=== PATIENT | male | born 1970 | race Caucasian/White ===

== ENCOUNTER 2024-03-09 00:51 | Day surgery (SDC) | payer BC, SELFPAY ==
[2024-03-08 19:50] VITALS: BP 142/80
[2024-03-08 19:58] VITALS: BMI 25.6
[2024-03-08 20:10] VITALS: BP 119/78
[2024-03-08 20:13] LABS: % Basophils 0.4 % (0-2); % Eosinophils 1.4 % (0-6); % Immature Granulocytes 0.1 % (0-0.5); % Lymphocytes 35.7 % (20.5-51.1); % Monocytes 9.4 % (1.7-9.3); Absolute Eosinophils 0.1 10^3/uL (0-0.7); Absolute Lymphocytes 2.7 10^3/uL (1.2-3.4); Absolute Monocytes 0.7 10^3/uL (0.1-0.6); Hematocrit 39.5 % (39.0-52.0); Hemoglobin 13.8 g/dL (13.0-18.0); Mean Corp Hgb Conc. 34.9 g/dL (33.0-37.0); Mean Corpuscular Hgb 29.5 pg (27.0-31.0); Mean Corpuscular Volume 84.4 fL (80.0-94.0); Mean Platelet Volume 9.3 fL (7.4-10.4); Nucleated Red Blood Cells % 0 % (-); Platelet Count 292 10^3/uL (130-400); Red Blood Cell Count 4.68 10^6/uL (4.70-6.10); Red Cell Dist. Width 12.7 % (11.5-14.5); White Blood Cell Count 7.6 10^3/uL (4.8-10.8)
[2024-03-08 20:25] LABS: ALT (SGPT) 23 U/L (0-50); AST (SGOT) 32 U/L (17-59); Albumin 4.4 g/dl (3.5-5.0); Alkaline Phosphatase 72 U/L (38-126); Blood Urea Nitrogen 21 mg/dl (9-20); Calcium 9.3 mg/dl (8.4-10.2); Carbon Dioxide 24 mmol/L (22-30); Chloride 103 mmol/L (98-107); Estimated Creatinine Clearance 71 ml/min; Glucose 99 mg/dl (70-99); Potassium 3.8 mmol/L (3.5-5.1); Sodium 142 mmol/L (135-145); Total Bilirubin 0.4 mg/dl (0.2-1.3); Total Protein 7.4 g/dl (6.3-8.2); eGFR > 60.00
[2024-03-08 20:38] LABS: Troponin I < 0.012 ng/ml
[2024-03-08 22:00] VITALS: BP 126/78
[2024-03-08 23:00] VITALS: BP 121/79
[2024-03-08 23:24] LABS: Troponin I 0.025 ng/ml
[2024-03-09] VITALS (13 sets, daily range): BP systolic 102–125; BP diastolic 53–80; BMI 25.1
--- NOTE | 2024-03-09 00:05 | ED.GENMED ---
History of Present Illness
General
Chief Complaint: Chest Pain
Source: patient and spouse
Time Seen by Provider: 03/08/24 19:54
History of Present Illness
History of Present Illness:
53-year-old male presents after he developed substernal chest pressure. The patient states that started about an hour prior to arrival. The patient does admit that has resolved prior to arrival in the department. He states it is 'nothing I ever
felt before'. He states he was just sitting and resting comfortably. He had otherwise a normal night. He had not just eaten or had anything GI related. He did feel like he had little bit difficulty breathing with the discomfort. He does admit
he has a history of hypercholesterolemia and has not taken meds for it. He denies any primary relatives with early heart disease. He is not a smoker.
Past History
Past History
ED Past Medical History: Hypercholesterolemia
Social History
Tobacco: Non-smoker
Phy Exam
Physical Exam
Physical Exam:
CONSTITUTIONAL Patient alert and oriented to person, place and time. Well-appearing. Vital signs reviewed.
HEAD atraumatic, normocephalic.
EYES eyelids normal to inspection, Pupils equally round and reactive to light, Extraocular muscles intact, Conjunctiva normal, Sclera normal.
NECK normal range of motion, Trachea midline, no jugular venous distention.
RESPIRATORY CHEST No respiratory distress noted, Chest expansion equal, Bilateral breath sounds clear.
CARDIOVASCULAR regular rate and rhythm, Heart sounds normal.
ABDOMEN abdomen nontender, Bowel sounds normal. No distention.
BACK normal inspection, no obvious deformities
UPPER EXTREMITY range of motion normal, Motor strength normal, no cyanosis, no edema.
LOWER EXTREMITY range of motion normal, Motor strength normal, no cyanosis, no edema.
NEURO Speech normal, No focal motor deficits, Jackie coma scale 15, Memory normal, Cranial Nerves intact to screening exam.
SKIN skin warm, dry, and normal in color.
PSYCHIATRIC patient oriented to person place and time, Normal affect.
Scores
Heart Score for Chest Pain Patients
STEMI patient?: No
History: Moderately Suspicious
ECG: Normal
Age: >45 - <65 years
Risk Factors: 1 or 2 Risk Factors
Troponin: </= Normal Limit
Heart Score for Chest Pain Patients: 3
Heart Score Risk: 2.5% MACE over next 6 weeks
Course
Orders/Labs/Results
Orders:
Orders
03/08/24 19:39
EKG [Electrocardiogram (*1)] Urgent
Reason for Study: Chest Pain
EKG- Treatment ONCE
03/08/24 20:06
Complete Blood Count/With Diff Urgent
Comprehensive Metabolic Panel Urgent
Troponin I Urgent
Chest [CR Chest - 2 Views ] Urgent
Comment:
Reason For Exam: chest pain
03/08/24 22:54
Troponin I Urgent
03/09/24 00:04
Aspirin 325 mg PO NOW STA
Abnormal Lab Results
03/08/24
20:06
RBC 4.68 L 10^6/uL
(4.70-6.10)
Absolute Monos (auto) 0.7 H 10^3/uL
(0.1-0.6)
Monocytes % 9.4 H %
(1.7-9.3)
BUN 21 H mg/dl
(9-20)
03/08/24 20:06
03/08/24 20:06
Vital Signs
Initial and Last Documented VS:
Initial Vital Signs
Temp Pulse Resp BP Pulse Ox
98.1 F 72 22 142/80 98
03/08/24 19:50 03/08/24 19:50 03/08/24 19:50 03/08/24 19:50 03/08/24 19:50
Last Documented Vital Signs
Temp Pulse Resp BP Pulse Ox
98.1 F 66 18 121/79 98
03/08/24 19:50 03/08/24 23:00 03/08/24 23:00 03/08/24 23:00 03/08/24 23:00
MDM/Problems Addressed
MDM/Problems Addressed:
Chest pain
*Radiology
Radiology exam reviewed: preliminary read by ED provider
*Pulse Oximetry
Patient hypoxic: no
*EKG
Interpreted by ED Provider?: Yes
Interpretation: normal
Rate: normal
Rhythm: sinus
[place]: normal axis
QRS Pattern: normal QRS
Ischemia: no ischemia
*Plastic Eye Technician Interpretation
Rate: normal
Interpretation: normal
Rhythm: sinus
*Critical Care Note
Total Time (30-74mins, 75-104mins- exclusive of procedures): Not Applicable
Data Reviewed
Source: patient
Prescriptions/Medications Considered But Not Given:
Considered heparin but patient has been pain-free.
Patient Management
Discussion with other providers: Hospitalist and Dredge Pipeman (Case discussed with Dr. Dawson)
Escalation/DeEscalation of care consider admission/obs:
53-year-old male presents with substernal chest pressure and dyspnea. Symptoms have resolved. Troponin 0.012 and negative. Repeat is still negative but did double. Case discussed with cardiology recommends admission for stress testing. Patient
remains pain-free
ED Attending Note
-
Portions of this chart may have been created with voice recognition software.� Occasional wrong word or��sound alike� substitutions may have occurred due to the inherent limitations of voice recognition software.
Discharge Plan
Departure
Patient Disposition: Admit
Date of Disposition: 03/09/24
Time of Disposition: 00:05
Admit to: Telemetry
Presentation/result/management discussed w/ accepting MD/DO: Hospitalist
Discharge Problem:
Chest pain
Referrals:
Nikita Vieira MD [Family Provider] -
Interventions
Interventions:
*Risk Screen - Suicide Last Done: 03/08/24 19:41
*General Assessment Last Done: 03/08/24 19:58
*Neglect/Abuse Screening Last Done: 03/08/24 19:41
ED- Fall Risk Assessment Last Done: 03/08/24 20:05
*ED COVID-19 Vaccine History Last Done: 03/08/24 19:58
ED- Cardiac Assessment Last Done: 03/08/24 20:05
Discharge Date and Time
Print Language: UGANDAN
--- NOTE | 2024-03-09 00:22 | HPS.HSE ---
Family Physician
-
Family Physician: Nikita Vieira
Chief Complaint
-
Chest pain
History of Present Illness
This 53-year-old male with past medical history of hypercholesterolemia not currently on any medications who presents to the emergency department with episode of chest pain.
Patient reports been in usual state of health and was sitting down comfortably reading when he noticed upper substernal chest pain/pressure that appears to radiate to the bilateral jaws. He reports associated shortness of breath but no nausea
vomiting or diaphoresis. This episode lasted about 30 minutes before starting to subside. He denies any prior episodes. He denies a history of exertional dyspnea or exertional chest pain. He reports uncle with history of CO otherwise no 4 degree
relative with CO. Patient denies history of hypertension, he denies any smoking history, he denies alcohol use. He is currently chest pain-free on arrival in ED.
In the ED he was afebrile and hemodynamically stable with a blood pressure of 121/80 and normal oxygen saturation on room air. ECG shows a normal sinus rhythm at rate of 78 without any ischemic findings. Initial troponin was 0.012. Patient CBC
was normal. Chemistries were within normal limits. Second troponin was 0.025. Chest x-ray was clear.
Medical History
Past Medical History
Past Medical History: Reports Hypercholesterolemia
Past Surgical History: Reports None
Social History
Tobacco: Non-smoker
Alcohol: None
Drug: None
Personal:
Living: With Family
Employment: Employed
Family History
Family History: CAD
Allergies / Home Medications
Allergies reflects when Allergies were last updated in [employer].
Home Medications with original date entered in [employer]
Allergy/Medication List:
Allergies
Allergy/AdvReac Type Severity Reaction Status Date / Time
No Known Allergies Allergy Verified 03/08/24 19:43
NONE
Review of Systems
-
History Source: Patient
Constitutional: Reports No Symptoms
EENT: Reports No Symptoms
Respiratory: Reports No Symptoms
Cardiac: Reports Chest Pain
Abdomen/GI: Reports No Symptoms
: Reports No Symptoms
Musculoskeletal: Reports No Symptoms
Skin: Reports No Symptoms
Neurological: Reports No Symptoms
Endocrine: Reports No Symptoms
Hematologic/Lymphatic: Reports No Symptoms
Psych: Reports No Symptoms
Physical Exam
Vital Signs
Vital Signs
Temp Pulse Resp BP Pulse Ox
98.1 F 66 18 121/79 98
03/08/24 19:50 03/08/24 23:00 03/08/24 23:00 03/08/24 23:00 03/08/24 23:00
Physical Exam
General: Well Developed, Well Nourished, No Apparent Distress and Comfortable
HEENT: NormoCephalic, Anicteric and Moist mucous membranes
Respiratory: Clear
Cardiac: S1/S2 and Regular Rhythm
Breast: Deferred by me
GI: Soft, Non Tender, Non Distended and Normal Bowel Sounds
Rectal: Deferred by Provider
Genito-urinary: Deferred by me
Musculoskeletal: No Clubbing, No Cyanosis and No Edema
Skin: Warm
Neuro: AO x 3
Hematologic/Lymphatic: No Lymphadenopathy
Psych: Calm
Laboratory Results
-
03/08/24 20:06
03/08/24 20:06
Laboratory Results
Total Bilirubin 0.4 mg/dl (0.2-1.3) 03/08/24 20:06
AST 32 U/L (17-59) 03/08/24 20:06
ALT 23 U/L (0-50) 03/08/24 20:06
Alkaline Phosphatase 72 U/L (38-126) 03/08/24 20:06
Troponin I 0.025 ng/ml D 03/08/24 22:54
Data Reviewed
-
Diagnostic Radiology: Image Personally Visualized and interpreted
Medical Tests (Nuc Med, Echo, EKG etc): Image Personally Visualized and interpreted
Lab Data: Labs Reviewed by me
Old Records: Reviewed
Impression/Plan
-
IMPRESSION:
53-year-old with acute episode of substernal chest pain lasting about 30 minutes with associated shortness of breath and with radiation to the jaws now resolved. Negative ECG. Initial troponin 0.012 which is increased to 0.025.
PLAN:
1. Chest pain -patient with typical chest pain lasting 30 minutes, ECG is nonischemic. Troponin is negative although increased on repeat. Case discussed with cardiology with plan for more immediate ischemic workup.
- admit to tele/observation
- aspirin 324 x 1
- ntg - prn
- repeat trox in 3 hours
- NPO in am incase of pharmacologic stress test
- lipid panel and a1c in am
DVT PPX - lovenox sq
Full Code
[2024-03-09] MEDS: ASPIRIN 325 MG PO (00:35)
--- NOTE | 2024-03-09 02:52 | TRANSFER ---
Pt arrived from ED at 0141 dx of chest pain. Pt AAOx3, able to make all needs known. Pt denied chest pain, SOB. VSS. Discussed w patient the possible need for stress test, and more labs today. Call blanco within reach, bed in lowest position.
[2024-03-09 07:30] LABS: HDL Cholesterol 36 mg/dl; LDL Cholesterol, Calculated 147 mg/dl; Total Cholesterol 224 mg/dl (50-199); Triglyceride 205 mg/dl (10-149); Very Low Density Lipoprotein 41 mg/dl (0-30)
--- NOTE | 2024-03-09 07:53 | CON.CAR ---
Addendum entered and electronically signed by Arpit Tobias MD 03/09/24 10:21:
53 yo male with PMH of dyslipidemia (untreated) is admitted with chest pain. Episode occurred last night at rest: midsternal pain radiating to jaw. Has never happened before. Lasted about 30 minutes. Currently chest pain free. Exam with RRR, no
murmurs, no edema. TnI: <0.012, 0.025, 0.020. EKG: no acute changes.
# Chest pain: concern for ACS/unstable angina.
-ASA, heparin drip, statin
-cath and echo today
Original Note:
Consultation
Consultation Request
Date/Time Consultation Requested: 03/09/2024 01:45
Date/Time Consultation Performed: 03/09/2024 07:50
Requesting Provider: Dr. Astorga
Performing Provider: ISIS Bullard for Dr. Tobias
Reason for Consultation: Chest pain
Medical History
-
Chief Complaint: Chest pain
History of Present Illness:
Inocente Bruce is a 53 year old male with dyslipidemia who presented to the ER with a chief complaint of chest pain. His chest pain started while he was sitting in a chair reading. It felt like a pressure. It was 7/10. He has never felt this way
before. He endorsed associated shortness of breath. His jaw felt 'sensitive'. The episode lasted about thirty minutes. The episode was about 19:00-19:30. Initial troponin 0.012 and EKG stable. He was chest pain free when he arrived to the emergency
room. Mr. Bruce is not on any medications at home. He does not smoke.
Past Medical History
Past Medical History: Hypercholesterolemia
Social History
Tobacco: Non-Smoker
Alcohol: Occasional (one per week)
Drug: None
Personal:
Living: With Family
Employment: Employed ([employer])
Family History
Family History: Other (One uncle with SCD ([place]). Parents and siblings without CAD diagosis.)
Allergies / Home Medications
Allergy/AdvReac Type Severity Reaction Status Date / Time
No Known Allergies Allergy Verified 03/08/24 19:43
Review of Systems
-
History Source: Patient
All other systems: Negative unless noted
Constitutional: No Symptoms
EENT: No Symptoms
Respiratory: No Symptoms
Cardiac: No Symptoms
Abdomen/GI: No Symptoms
: No Symptoms
Musculoskeletal: No Symptoms
Skin: No Symptoms
Neurological: No Symptoms
Endocrine: No Symptoms
Hematologic/Lymphatic: No Symptoms
Physical Exam
Vital Signs
Temp Pulse Resp BP Pulse Ox
98.2 F 66 12 119/74 95
03/09/24 07:43 03/09/24 07:43 03/09/24 07:43 03/09/24 07:43 03/09/24 07:43
Lab Results
03/08/24 20:06
03/08/24 20:06
Troponin I 0.020 ng/ml 03/09/24 02:05
Physical Exam
General: Well Developed, Well Nourished, No Apparent Distress and Comfortable
HEENT: Normocephalic, Anicteric and Moist Mucous Membranes
Respiratory: Clear and Non Labored Respirations
Cardiac: S1/S2 and Regular Rhythm; Negative Peripheral Edema
Breast: Deferred by me
GI: Soft, Non Tender, Non Distended and Normal Bowel Sounds
Rectal: Deferred by Provider
Genito-urinary: No Costovertebral Tender
Musculoskeletal: No Clubbing, No Cyanosis and No Edema
Skin: Warm and Dry
Neuro: AO x 3
Hematologic/Lymphatic: No Lymphadenopathy
Psych: Calm
Impression / Plan
-
ACS
-Peak troponin 0.025
-Received ASA 324mg in ER, 81mg ordered for this morning
-Start heparin gtt
-Lipid panel as below, Hgba1c pending
-Echocardiogram
Dyslipidemia
-TC 224, LDL 147, HLD 36, TG 205
-His 10-year ASCVD risk is intermediate (7.5%) with this mornings BP and without CAD diagnosis
-Start statin
Data Reviewed
-
EKG: Report Reviewed by me (Sinus rhythm, rate 78)
Radiology: Report Reviewed by me (CXR: No active cardiopulmonary disease.)
Labs: Labs Reviewed by me
Old Records: Reviewed
[2024-03-09] MEDS: ASPIR LOW (ENTERIC COATED) 81 MG PO (08:55)
[2024-03-09 10:10] LABS: Hematocrit 41.8 % (39.0-52.0); Hemoglobin 14.4 g/dL (13.0-18.0); Mean Corp Hgb Conc. 34.4 g/dL (33.0-37.0); Mean Corpuscular Hgb 29.4 pg (27.0-31.0); Mean Corpuscular Volume 85.5 fL (80.0-94.0); Mean Platelet Volume 9.2 fL (7.4-10.4); Platelet Count 271 10^3/uL (130-400); Red Blood Cell Count 4.89 10^6/uL (4.70-6.10); Red Cell Dist. Width 12.7 % (11.5-14.5); White Blood Cell Count 5.4 10^3/uL (4.8-10.8)
[2024-03-09] MEDS: HEPARIN 25000 UNITS/250 ML IV (10:18)
[2024-03-09 10:25] LABS: APTT 30.6 Sec (23.4-35.0)
[2024-03-09 11:28] LABS: Glycohemoglobin (HgbA1c) 5.7 % (4.0-5.6)
--- NOTE | 2024-03-09 11:46 | CM ---
Pt admitted with Chest pain
Met with pt at bedside
Pt lives with his and daughter in a 2 story home; no steps to enter, 16 steps to 2nd fl
Employed [employer], drives, independent
SNF/HH - denies past hx
DME - none
Has ride home at discharge
PCP - Nikita Vieira
Pharm - [facility]
For cardiac cath today
CM will follow for discharge needs
Plan - anticipate home no needs
--- NOTE | 2024-03-09 14:09 | PTCARENOTE ---
Patient transported to cardiac lab pack chemist at 1410 in his bed.Heparin drip was infusing at 850 units/8.5ml per hour.
--- NOTE | 2024-03-09 14:49 | W.PN.HOSP.TC ---
Today's Communication/Plan
-
IV heparin
Aspirin
Left heart cath.
Echocardiogram
Assessment / Plan
Assessment / Plan
Impression:
Concern for acute coronary syndrome.
Chest pain with radiation to the jaw.
Dyslipidemia.
Plan:
Chest pain with concern for acute coronary syndrome
Risk factors dyslipidemia.
EKG with no ischemia.
Negative cardiac markers
LDL 147
Hemoglobin A1c 5.7 (prediabetes)
Currently chest pain-free.
Initiated on aspirin IV heparin drip.
Plan is for left heart cath and echocardiogram.
Anticipated Discharge: 24 - 48 hours
Subjective/Interval History
-
Date of Service: March 09, 2024
Objective Data
-
Labs:
Laboratory Results
03/09/24 03/09/24
10:03 16:30
WBC 5.4
Hgb 14.4
Hct 41.8
Plt Count 271
APTT 30.6 Pending
Vital Signs:
Vital Signs
Temp Pulse Resp BP Pulse Ox
97.4 F 60 16 120/72 98
03/09/24 11:05 03/09/24 11:05 03/09/24 11:05 03/09/24 11:05 03/09/24 11:05
Physical Exam
-
General: Well Developed and No Apparent Distress
HEENT: Normocephalic, Atraumatic and Moist Mucous Membranes
Respiratory: Clear to Auscultation
Cardiac: Regular Rhythm and S1/S2; Negative Murmur, Rub or Gallop
GI: Soft, Nontender, Nondistended and Normal Bowel Sounds; Negative Organomegaly
Rectal: Deferred by Provider
Musculoskeletal: No Clubbing, No Cyanosis and No Edema
Skin: Negative Rash
Neuro: Nonfocal/Grossly Intact
[2024-03-09 15:06] LABS: ACT-LR - POC 350 Seconds (116-155)
[2024-03-09 15:19] LABS: ACT-LR - POC 306 Seconds (116-155)
--- NOTE | 2024-03-09 15:43 | ITS.CL.ANGIO ---
Hose Inspector - Angioplasty
Angioplasty
Procedure Report:
CARDIAC CATHETERIZATION REPORT
Date of Procedure: 03/09/2024
Referring: Arpit Tobias M.D., Ph.D.
INDICATION: Unstable angina.
PROCEDURE:
1. Left heart catheterization.
2. Coronary angiography.
3. Successful IFR of the mid circumflex.
4. Successful PCI of OM1.
ACCESS:
6 Iranian right radial artery.
CATHETERS:
1. 5 Iranian JR4.
2. 5 Iranian JL 3.5.
3. 6 Iranian EBU 3.5 guiding catheter.
HEMODYNAMIC DATA
Weight (kg): 72.6
AO (s/d/x, mmHg): 121/84/102
LV (s/x mmHg): 123/12
LEFT VENTRICULOGRAPHY: Not performed.
CORONARY ANGIOGRAPHY
Dominance: Right.
Left Main: Normal size, bifurcating vessel. There is no coronary artery disease.
LAD: Normal size vessel with tandem 40% and 20% lesions in the mid vessel. The distal vessel tapers rapidly in does not supply the apex but rather deviates to the lateral wall.
Ramus: Congenitally absent.
Circumflex: Large size, nondominant circumflex giving rise to 1 obtuse marginal. The distal vessel is essentially a single large second obtuse marginal supplying almost the entire inferolateral wall. There is a 40% lesion in the mid circumflex,
immediately after the origin of the first obtuse marginal. OM1 is a small to medium size vessel with a 90% lesion in its midportion.
RCA: Large size, dominant vessel with a significant posterolateral arcade. The RPDA is very large and wraps around the apex supplying the terminal anterior apex. There are minor luminal irregularities in the mid vessel.
INTERVENTION(S)
1. Successful IFR of the 40% mid circumflex lesion, demonstrating nonocclusive disease (IFR = 1.0).
2. Successful PCI of the 90% OM1 lesion (Medtronic [place] 2.0 x 12 SHAGUFTA) with reduction in stenosis to 0%, maintaining JENNY-3 flow.
Narrative:
The decision was made to perform physiologic testing. The diagnostic catheter was removed over a wire and exchanged for a(n) 6 Iranian EBU 3.5 guiding catheter. The guiding catheter was advanced into the ascending aorta and seated in the left main
coronary artery. Additional heparin was given to obtain an ACT greater than 250 seconds. An iFR wire was zeroed outside of the body, then inserted into the guiding sheath. The wire was advanced and the transducer was normalized just outside of the
guiding catheter tip. The wire was advanced into the distal circumflex/OM 2, beyond the 40% mid circumflex lesion. Three iFR measurements were taken. The lesion was determined to be nonocclusive (1.0).
The decision was made to proceed with percutaneous coronary intervention. The IFR wire was withdrawn and a Power Turn Flex wire was advanced into the distal OM1. The 90% mid OM1 lesion was predilated with a 2.0 x 12 semi-compliant balloon to 12
dotty. The semi-compliant balloon was removed and a Medtronic [place] 2.0 x 12 drug-eluting stent was advanced. The stent was deployed at 12 atmospheres. The stent balloon was removed. Angiography was performed in orthogonal views, confirming
good stent expansion and an excellent angiographic result. The coronary wire was withdrawn and the guide was disengaged from the artery. The catheter was removed over a standard J-wire.
Closure Device: Vascular band.
Radiation (mGy): 535.86
DAP (cm2.Gy): 34.8129
Fluoroscopy time (minutes): 7.6
Sedation time (minutes): 41
CONCLUSIONS
1. Right dominant circulation with luminal irregularities in the mid RCA, tandem 40% and 20% lesions in the mid LAD, a nonocclusive 40% lesion in the large mid circumflex (IFR = 1.0) and a 90% lesion in the mid OM1 status post successful PCI
(Medtronic [place] 2.0 x 12 SHAGUFTA) with reduction in stenosis to 0%, maintaining JENNY-3 flow.
2. Normal filling pressures (LVEDP = 12 mmHg at 72.6 kg).
RECOMMENDATIONS:
1. Expectant management after cardiac catheterization via right radial approach.
2. Limited weight bearing on the right wrist for one week.
3. Dual antiplatelet therapy with aspirin and ticagrelor for at least 12 months, followed by aspirin indefinitely.
4. Aggressive secondary prevention with high-dose, high potency statin.
5. Echocardiogram ordered and pending.
6. Guideline directed medical therapy as hemodynamics will tolerate.
7. Referral to cardiac rehab.
Copy to: Arpit Tobias M.D., Ph.D., Patrica Camacho M.D.
Danny Justin DO, FACC, FACP
--- NOTE | 2024-03-09 16:12 | CM ---
Telephone call to [facility] to check on co=pay for Brilinta. Brilinta is not covered under his prescription plan. Plavix and Effient are covered. Plavix $30.00 a month and Effient $120.00 a month.
--- NOTE | 2024-03-09 16:48 | PTCARENOTE ---
Received patient from cardiac cath lab manager with R radial cath site external pressure band in place. No evidence of bleeding, R radial artery pulse palpable. Oriented pt to room and explained activity restrictions and plan of care, pt verbalizes understanding.
No complaints from pt at this time.
[2024-03-09] MEDS: CRESTOR 20 MG PO (17:57)
--- NOTE | 2024-03-09 23:42 | PTCARENOTE ---
R radial site is c/d/i. No hematoma/bleeding noted. Tele- SR. Pt has no c/o pain at this time. POC reviewed w/ pt. Verbalizes understanding. Currently in bed; call bella w/in reach.
[2024-03-10 04:40] VITALS: BP 108/66
[2024-03-10 04:56] LABS: Hematocrit 41.3 % (39.0-52.0); Hemoglobin 14.5 g/dL (13.0-18.0); Mean Corp Hgb Conc. 35.1 g/dL (33.0-37.0); Mean Corpuscular Hgb 29.8 pg (27.0-31.0); Mean Platelet Volume 9.2 fL (7.4-10.4); Platelet Count 261 10^3/uL (130-400); Red Blood Cell Count 4.86 10^6/uL (4.70-6.10); Red Cell Dist. Width 12.7 % (11.5-14.5); White Blood Cell Count 6.7 10^3/uL (4.8-10.8)
[2024-03-10 05:32] LABS: Blood Urea Nitrogen 16 mg/dl (9-20); Calcium 9.4 mg/dl (8.4-10.2); Carbon Dioxide 20 mmol/L (22-30); Chloride 105 mmol/L (98-107); Estimated Creatinine Clearance 87 ml/min; Glucose 94 mg/dl (70-99); Potassium 4.6 mmol/L (3.5-5.1); Sodium 139 mmol/L (135-145); eGFR > 60.00
[2024-03-10 07:28] VITALS: BP 114/74
[2024-03-10] MEDS: ASPIR LOW (ENTERIC COATED) 81 MG PO (07:47)
--- NOTE | 2024-03-10 09:21 | W.CARD.POSTP ---
Post PCI Follow Up
Procedure
Procedure/Date: 03/09/24 LHC: 1. Right dominant circulation with luminal irregularities in the mid RCA, tandem 40% and 20% lesions in the mid LAD, a nonocclusive 40% lesion in the large mid circumflex (IFR = 1.0) and a 90% lesion in the mid OM1
status post successful PCI (Medtronic [place] 2.0 x 12 SHAGUFTA) with reduction in stenosis to 0%, maintaining JENNY-3 flow.
2. Normal filling pressures (LVEDP = 12 mmHg at 72.6 kg).
Subjective: Denies cp, sob
Site
Site: Radial: Right and No ht/bleeding, distal pulses palpable
Tele / EKG
SR no sig ectopy
Labs
03/10/24 04:47
03/10/24 04:47
APTT Cancelled 03/09/24 22:26
Triglycerides 205 mg/dl (10-149) H 03/09/24 04:34
LDL Cholesterol, Calc 147 mg/dl 03/09/24 04:34
VLDL Cholesterol, Calc 41 mg/dl (0-30) H 03/09/24 04:34
HDL Cholesterol 36 mg/dl 03/09/24 04:34
DAPT Medication
DAPT Medication: Aspirin 81mg daily and Clopidogrel 75 mg daily
Case Management checking mae: Yes (unable to afford Brilinta or Effient)
Plan
Post PCI OM
DAPT ASA/Plavix, load today at 12 with 600mg (was loaded with Brilinta yesterday)
Cardiac rehab c/s
f/u LENS MOLDER 03/31 @140pm
--- NOTE | 2024-03-10 10:13 | PTCARENOTE ---
Pt received this am with no c/o of any incisional pain or sob. Room air sat 90%. O2 placed at 1LNC, sat 92%. Pt assisted to the bathroom and to the chair for breakfast. Gait steady with the walker. Left arm immobilizer intact. Left chest pressure
dressing removed. Aqucell dressing dry and intact.
--- NOTE | 2024-03-10 10:31 | CM ---
Reviewed chart. Mr. Bruce was transferred to IVU. Met with and Mrs. Bruce to review discharge plans. He states prior to admission he resides with his spouse and daughter in a two story home without any steps to enter. . He states he has a
full flight of steps to get to bedroom/full bathroom. He has a powder room on the first floor. He states prior to admission he was independent with ambulation and adls. He states he does not have any DME in the home. He states he has a
prescription plan and uses [facility]. The discharge plan is to return home with his family when medically stable.
[2024-03-10 11:28] VITALS: BP 129/84
[2024-03-10] MEDS: PLAVIX 600 MG PO (12:02)
--- NOTE | 2024-03-10 12:23 | PTCARENOTE ---
Pt received this am with no c/o of any chest pain or sob. Room air sat 98%. OOB independently in the room and hallway. RIght rad site dressing dry and intact with no hematoma. Pt discharged to home with his . Discharge instructions given and
reviewed with pt and his with good understanding.
--- NOTE | 2024-03-10 12:24 | W.DS.TRANS ---
DC Summary - Binder Roller
-
Discharge Instructions:
Discharge Diagnosis/Procedures Angioplasty and stent to Obtuse Marginal artery
Diet Low Cholesterol
Activity No strenuous activity
Additional Activity See attached instructions
Driving Restrictions No driving for 24 hours
Bathing Restrictions None
Other Services Cardiac Rehab
Instructions:
Stand-Alone Forms: DC Instructions- Cath/EP Lab
Changes to Home Medications: Yes
Discharge Medications:
DC Medications w/original date entered in [employer]
aspirin 81 mg tablet,delayed release 81 mg PO DAILY #30 tabs 03/10/24
clopidogrel 75 mg tablet 75 mg PO DAILY #90 tabs 03/10/24
rosuvastatin 20 mg tablet 20 mg PO QPM #90 tabs 03/10/24
Home Medication Changes
all of above
Pending Results: No
--- NOTE | 2024-03-10 12:26 | W.PN.CD ---
Today's Communication / Plan
-
ok to discharge after plavix load
Impression / Plan
-
#ACS, status post PCI LCx marginal branch
-Peak troponin 0.025
-Echocardiogram w/o RWMA
-now chest pain free
-cont. DAPT with asa and Plavix (transitioned from ticag due to cost)
# Dyslipidemia
-TC 224, LDL 147, HLD 36, TG 205
-cont. Rosuvastatin 20 (LDL 147, may need additional agents to achieve goal <70)
Physical Exam
Vital Signs/Labs
Vital Signs
Temp Pulse Resp BP Pulse Ox
36.4 C 66 18 129/84 98
03/10/24 11:28 03/10/24 11:30 03/10/24 11:28 03/10/24 11:28 03/10/24 11:28
03/09/24 03/10/24 03/11/24
06:59 06:59 06:59
Actual Weight 72.665 kg
03/10/24 04:47
03/10/24 04:47
APTT Cancelled 03/09/24 22:26
Triglycerides 205 mg/dl (10-149) H 03/09/24 04:34
LDL Cholesterol, Calc 147 mg/dl 03/09/24 04:34
VLDL Cholesterol, Calc 41 mg/dl (0-30) H 03/09/24 04:34
HDL Cholesterol 36 mg/dl 03/09/24 04:34
LAB Results
03/08/24 03/08/24 03/09/24
20:06 22:54 02:05
Troponin I < 0.012 0.025 D 0.020
Physical Exam
Constitutional: No acute distress and Comfortable
Cardiovascular: Rhythm & rate is regular, Pedal edema is absent, JVD pressure is normal, Systolic murmur absent and Diastolic murmur absent
Respiratory: Respiratory effort normal, Lungs clear to auscul. and Wheeze Absent
Neuro/Psych: Alert, Oriented and AO x 3
Data Reviewed
-
Date of Service: March 10, 2024
Medical Decision Making: Reviewed Test Results
EKG: Report Reviewed by me
Echo: Report Reviewed by me
X-Ray/CT/US/MRI/NUC/PET: Report Reviewed by me
Medical Tests (PFT, Pathology etc): Image Personally Visualized and interpreted
Labs: Labs Reviewed by me
== END 2024-03-10 12:21 | disposition home or self-care (01) ==
LOC: SDS 00:51
PROVIDERS: Internal Medicine; Nurse Practitioner; CONSULT PHYSICIAN Internal Medicine Cardiovascular Disease; EMERGENCY PHYSICIAN Emergency Medicine; FAMILY PHYSICIAN Family Medicine
DX: I25.110 Atherosclerotic heart disease of native coronary artery with unstable angina pectoris (principal); E78.00 Pure hypercholesterolemia, unspecified; Z82.49 Family history of ischemic heart disease and other diseases of the circulatory system
CPT/HCPCS: 71046; 80048; 80053; 80061; 83036; 84484; 85025; 85027; 85347; 85730; 93005; 93306; 93458; 93799; 99285; C1725; C1769; C1874; C1894; C9600; G0378; Q9967

== ENCOUNTER → 2024-04-14 13:09 | Outpatient (REF) | payer BC, SELFPAY | LOC: DHSLP 13:09 | PROVIDERS: ATTENDING PHYSICIAN Family Medicine | DX: G47.33 Obstructive sleep apnea (adult) (pediatric) (principal); R06.83 Snoring | CPT/HCPCS: 95800 ==

== ENCOUNTER 2024-04-22 16:58 | Outpatient (RCR) | payer BC, SELFPAY | END 2024-04-22 23:59 | disposition home or self-care (01) | LOC: CRHB 16:58 | PROVIDERS: ATTENDING PHYSICIAN Internal Medicine | DX: I25.10 Atherosclerotic heart disease of native coronary artery without angina pectoris (principal); Z95.5 Presence of coronary angioplasty implant and graft | CPT/HCPCS: 93797; 93798 ==

== ENCOUNTER 2024-05-18 16:30 | Outpatient (RCR) | payer BC, SELFPAY | END 2024-05-19 09:58 | disposition home or self-care (01) | LOC: CRHB 16:30 | PROVIDERS: ATTENDING PHYSICIAN Internal Medicine; FAMILY PHYSICIAN Family Medicine | DX: I25.10 Atherosclerotic heart disease of native coronary artery without angina pectoris (principal); Z95.5 Presence of coronary angioplasty implant and graft | CPT/HCPCS: 93797; 93798 ==